=== PATIENT | male | born 1990 | race American Indian/Alaskan Native ===

== ENCOUNTER 2016-08-11 10:15 | Emergency (ER) | payer SELFPAY ==
[2016-08-11 10:23] VITALS: BP 131/67
[2016-08-11] MEDS ORDERED: MOTRIN PO ONE (11:17)
--- NOTE | 2016-08-11 11:43 | Emergency Department Report ---
- General Chief complaint: Skin/Abscess/Foreign Body Stated complaint: POSS SPIDER BITE/SWOLLEN/INFECTED Time Seen by Provider: 08/11/16 11:09 Source: patient Mode of arrival: Ambulatory Limitations: No Limitations - History of Present Illness Initial comments: 25-year-old male past medical history none presents with complaint of abscess/ swelling at bottom of his left scapula. Patient states he may have been bitten by an insect and it has gotten progressively more uncomfortable for the last 3 days. Patient denies any fever or chills denies any pus drainage. MD complaint: lesion Onset/Timin -: days(s) Location: back (at base of left scapula) Severity: moderate Severity scale (0 -10): 5 Quality: aching Consistency: constant Improves with: none Worsens with: movement Context: none Associated symptoms: denies other symptoms - Related Data Home Medications Medication Instructions Recorded Confirmed Last Taken Escitalopram [Lexapro] 10 mg PO DAILY 08/11/16 08/11/16 08/10/16 00:00 10 mg Previous Rx's Medication Instructions Recorded Last Taken Type Ibuprofen [Motrin] 600 mg PO Q8H PRN #30 tablet 08/11/16 Unknown Rx Sulfamethoxazole/Trimethoprim 1 each PO BID #14 tablet 08/11/16 Unknown Rx [Bactrim DS TAB] Allergies Allergy/AdvReac Type Severity Reaction Status Date / Time No Known Allergies Allergy Verified 08/11/16 10:27 Abscess Boil HPI - HPI Chief Complaint: Skin/Abscess/Foreign Body Stated Complaint: POSS SPIDER BITE/SWOLLEN/INFECTED Time Seen by Provider: 08/11/16 11:09 Home Medications: Home Medications Medication Instructions Recorded Confirmed Last Taken Escitalopram [Lexapro] 10 mg PO DAILY 08/11/16 08/11/16 08/10/16 00:00 10 mg Previous Rx's Medication Instructions Recorded Last Taken Type Ibuprofen [Motrin] 600 mg PO Q8H PRN #30 tablet 08/11/16 Unknown Rx Sulfamethoxazole/Trimethoprim 1 each PO BID #14 tablet 08/11/16 Unknown Rx [Bactrim DS TAB] Allergies/Adverse Reactions: Allergies Allergy/AdvReac Type Severity Reaction Status Date / Time No Known Allergies Allergy Verified 08/11/16 10:27 ED Review of Systems ROS: Stated complaint: POSS SPIDER BITE/SWOLLEN/INFECTED Other details as noted in HPI ED Past Medical Hx - Past Medical History Previous Medical History?: No - Surgical History Past Surgical History?: No - Social History Smoking Status: Current Every Day Smoker Substance Use Type: Alcohol - Medications Home Medications: Home Medications Medication Instructions Recorded Confirmed Last Taken Type Escitalopram [Lexapro] 10 mg PO DAILY 08/11/16 08/11/16 08/10/16 00:00 History 10 mg Ibuprofen [Motrin] 600 mg PO Q8H PRN #30 tablet 08/11/16 Unknown Rx Sulfamethoxazole/Trimethoprim 1 each PO BID #14 tablet 08/11/16 Unknown Rx [Bactrim DS TAB] ED Physical Exam - General Limitations: No Limitations General appearance: alert, in no apparent distress - Head Head exam: Present: atraumatic, normocephalic - Eye Eye exam: Present: normal appearance, PERRL, EOMI - ENT ENT exam: Present: mucous membranes moist - Neck Neck exam: Present: normal inspection - Respiratory Respiratory exam: Present: normal lung sounds bilaterally. Absent: respiratory distress - Cardiovascular Cardiovascular Exam: Present: regular rate, normal rhythm. Absent: systolic murmur, diastolic murmur, rubs, gallop - GI/Abdominal GI/Abdominal exam: Present: soft, normal bowel sounds - Rectal Rectal exam: Present: deferred - Extremities Exam Extremities exam: Present: normal inspection - Back Exam Back exam: Present: other (abscess at base of left scapular region) - Expanded Back Exam Expanded 1 - Also prescribed abscess/sebaceous cyst approximately 2 cm in diameter with fluctuance, soft at base of tip of left scapula - Neurological Exam Neurological exam: Present: alert, oriented X3 - Psychiatric Psychiatric exam: Present: normal affect, normal mood - Skin Skin exam: Present: warm, dry, intact, normal color. Absent: rash ED Course Vital Signs 08/11/16 10:21 Temperature 98.3 F Pulse Rate 67 Respiratory 18 Rate Blood Pressure 131/67 O2 Sat by Pulse 100 Oximetry - I & D Back Site: left scapular area Blade Size: 11 I & D Procedure: betadine prep Progress: Area anesthetized with lidocaine 1% with epi, small horizontal 1 cm incision made in middle of abscess/cyst region. Immediate drainage of purulent/ sebaceous material. Procedure tolerated well approximately 4 mL's of purulent and sebaceous material drained. No significant bleeding or pain ED Medical Decision Making - Medical Decision Making A/P: Bug bite, abscess 1-while there is no appreciable cellulitis patient states he may have been bitten by an insect I will cover empirically for MRSA with Bactrim 2-no packing as abscess site was fairly small. I sent a wound culture of purulent material that was able to drain 3-advised patient to return to the ED if abscess/cyst reaccumulate experiences any fever or chills, bleeding or increased pain at site 4-and compresses, Motrin for discomfort Critical care attestation.: If time is entered above; I have spent that time in minutes in the direct care of this critically ill patient, excluding procedure time. ED Disposition Clinical Impression: Abscess Disposition: DISCHARGED TO HOME OR SELFCARE Is pt being admited?: No Does the pt Need Aspirin: No Condition: Stable Instructions: Incision and Drainage (ED), Abscess (ED), Insect Bite or Sting ( ED) Prescriptions: Sulfamethoxazole/Trimethoprim [Bactrim DS TAB] 1 each PO BID #14 tablet Ibuprofen [Motrin] 600 mg PO Q8H PRN #30 tablet PRN Reason: Pain Forms: Work/School Release Form(ED) Time of Disposition: 11:44
[2016-08-11] MEDS ORDERED: XYLOCAINE 1%/ EPI 1:100,000 INFILTRATI NR (12:00)
== END 2016-08-11 11:51 | disposition home or self-care (01) ==
LOC: ED 10:15
DX: L02.414 Cutaneous abscess of left upper limb (principal); F17.200 Nicotine dependence, unspecified, uncomplicated
CPT/HCPCS: 87116